=== PATIENT | male | born 1985 | race Caucasian/White ===

== ENCOUNTER 2016-11-29 12:52 | Emergency (ER) | payer OTHER ==
[~2016-11-29] VITALS: Ht 165.1 cm; Wt 58.0 kg
[2016-11-29 12:54] VITALS: TEMP 36.6; Ht 165.1 cm; Wt 58.0 kg
[2016-11-29] MEDS ORDERED: OXYCODONE HCL IR 5 MG TAB (IMMEDIATE RELEASE) PO STA (14:18)
[2016-11-29] MEDS ORDERED: LIDOCAINE/EPINEPHRINE 1% 20 ML VIAL INFIL STA (14:18)
--- NOTE | 2016-11-29 14:49 | DIAGNOSTIC IMAGING REPORT ---
LEFT KNEE 3 VIEWS CLINICAL HISTORY: Left knee trauma, laceration with grinding wheel trauma COMPARISON: None. DISCUSSION: Infrapatellar soft tissue laceration. No acute bony abnormality. A significant joint effusion. IMPRESSION: Soft tissue laceration. No acute bony abnormality. Electronically signed by: Heri Okeefe M.D. 11/29/2016 2:48 PM Dictated Date/Time: 11/29/2016 2:47 PM
[2016-11-29] MEDS ORDERED: CEPH500C PO (15:55)
--- NOTE | 2016-11-29 15:56 | EMERGENCY ROOM VISIT NOTE ---
ED Visit Note First contact with patient: 14:11 Chief Complaint: "Cut knee". History of Present Illness: This patient is a 31-year-old male who presents to the Emergency Department via private vehicle for evaluation of their left knee laceration. Patient sustained the laceration while operating a tap grinder today at approximately noon time. The patient notes that the tap grinder bounced and struck his left knee. He rates the pain as a 10/10.. They report a moderate amount of bleeding initially. They deny any numbness or tingling into the distal extremity. Patient rates his current discomfort as a 10/10. Patient's Tetanus status is currently up-to-date. 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 ROS: All pertinent positive and negative review of systems are appropriately documented in the History of Present Illness. Physical Exam: VITAL SIGNS - Vital signs and nursing notes were reviewed. GENERAL -31-year-old male appearing his stated age who is in no acute distress. Communicates well with provider and answers questions appropriately. SKIN - There are 2 linear, nearly identical lacerations on the medial aspect of the left knee. The superior most laceration measures 4 cm, with the inferior laceration measuring 4.5 The edges gape apart with traction. No foreign bodies appreciated. Upon further examination there are no deep structures including vessel, tendon, or bony structures appreciated. There is no active bleeding noted. MUSCULOSKELETAL -near full range of motion of the left knee. There is tenderness to palpation overlying the left knee joint. NEUROLOGIC - he is neurovascularly intact in the left lower extremity. VASCULAR - Capillary refill was brisk. IMAGING: LEFT KNEE 3 VIEWS CLINICAL HISTORY: Left knee trauma, laceration with grinding wheel trauma COMPARISON: None. DISCUSSION: Infrapatellar soft tissue laceration. No acute bony abnormality. A significant joint effusion. IMPRESSION: Soft tissue laceration. No acute bony abnormality. Electronically signed by: Heri Okeefe M.D. 11/29/2016 2:48 PM Dictated Date/Time: 11/29/2016 2:47 PM ED Course: Patient was seen and evaluated by myself. Risks and benefits of performing primary wound closure versus no repair were discussed with the patient who verbalizes understanding. Verbal consent was obtained prior to performing the procedure. 5 cc of 1% lidocaine with epinephrine was used to anesthetize the 2 lacerations. The wound was cleansed and prepped in the typical sterile fashion utilizing normal saline and Betadine. The wound was sterilely draped. Once proper anesthetization was established, the wound was further examined and demonstrated 2 linear lacerations without deep involvement, radiograph does not reveal any large foreign body is radiopaque. The wound was copiously irrigated with normal saline and Betadine. The wound was closed using 8 simple, 5-0 nylon sutures with the wound edges being well approximated. Patient tolerated the procedure well. No complications were met. The wound was cleansed and dressed with a Bacitracin dressing. He was fitted with a knee immobilizer as I do not want the patient flexing at the left knee causing the skin edges to tear around the suture material. He respectfully declined crutches. Patient educated on worrisome symptoms for return visit to the Emergency Department. Patient discharged to home in good condition. He will be prescribed Keflex 500 mg 3 times a day for 7 days for infectious prophylaxis secondary to the nature of the wound. In the evaluation and treatment of this patient, the following differential diagnoses were considered: Patellar Fracture, laceration, retained foreign body , Tibial Plateau Fracture, Distal Femur Fracture, ACL Injury, PCL Injury, Collateral Ligament Injury, Pes Anserine Bursitis, Maisonneuve Fracture. Current/Historical Medications Scheduled Cephalexin Monohydrate (Keflex), 500 MG PO TID Allergies Coded Allergies: Amoxicillin (Unverified Allergy, Severe, BEHAVIORAL, 11/29/16) Clavulanic Acid (Unverified Allergy, Severe, BEHAVIORAL, 11/29/16) Vital Signs Date Time Temp Pulse Resp B/P Pulse Ox O2 Delivery O2 Flow Rate FiO2 11/29/16 16:18 68 18 118/61 99 Room Air 11/29/16 16:18 68 18 118/67 99 11/29/16 12:54 36.6 58 16 135/76 98 Medications Administered Medications (Trade) Dose Ordered Sig/Rizwana Route Start Time Stop Time Status Last Admin Dose Admin Lidocaine/ Epinephrine (Xylocaine/Epine 1% Inj) 20 ml ONE STAT INFIL 11/29/16 14:18 11/29/16 14:19 DC 11/29/16 14:31 20 ML Oxycodone HCl (Roxicodone Immediate Rel Tab) 5 mg NOW STAT PO 11/29/16 14:18 11/29/16 14:19 DC 11/29/16 14:29 5 MG Departure Information Impression Primary Impression: Laceration Dispostion Home / Self-Care Condition GOOD Prescriptions Cephalexin Monohydrate (Keflex) 500 Mg Cap 500 MG PO TID for 7 Days, #21 CAP Prov: Ramesh ArellanoFELY Rosenbaum 11/29/16 Referrals Sean Allan III, M.D. (PCP) Patient Instructions My [facility] Additional Instructions You have received 8 sutures on your left knee. These sutures are NOT dissolvable and WILL need to be removed by a health care provider in 14 days. You can return to the Emergency Department or contact your Primary Care Provider to have the sutures removed. Proper wound care is essential for adequate wound healing and infection prevention. You can shower and clean the wound with soap and water. Do not scour over the wound, pat dry with a towel. Do not submerse the wound (i.e. bathe or dish wash) until the sutures have been removed. You can use an antibiotic ointment with a dressing over the wound for the next 3-4 days. After this time you may leave the wound dry and open to the air. If crust develops over the wound you can use a Q-tip to apply a 1:1 peroxide:water solution to clean the wound. Look for signs of infection of the wound including: increased pain, swelling, foul discharge, streaking, or increased temperature. If any of these are noticed you should return to the Emergency Department for further assessment and treatment. As with any laceration you may have received nerve damage to the surrounding tissues. This damage may or may not be permanent. You should keep the area covered with sunscreen for the first 6 months to 1 year when at risk for exposure to help minimize scarring. Please wear the knee brace to allow the stitches to help the skin heal. You can also use scar reducing creams or Vitamin E oil to help minimize scarring. For pain control, you can use the following [id number] medicines (if >12 yo): - Regular strength (325mg/tab) Tylenol (acetaminophen) 2 tabs every 4-6 hours as needed. Do not exceed 12 tablets in a 24 hour period. Avoid taking more than 3 grams (3000 mg) of Tylenol per day. This includes any other sources of acetaminophen you may take on a regular basis. - Regular strength (200 mg/tab) Advil (ibuprofen) 1-2 tabs every 4-6 hours as needed. Do not exceed a dose of 3200 mg per day. Return to the emergency department if your symptoms worsen despite treatment course outlined above.
[2016-11-29 16:18] VITALS: BP 118/61; PULSE 68; O2SAT 99
== END 2016-11-29 16:19 | disposition home or self-care (01) ==
LOC: C.EDB 12:54 → C.EDD 16:19
DX: S81.012A Laceration without foreign body, left knee, initial encounter (principal); W31.89XA Contact with other specified machinery, initial encounter

== ENCOUNTER 2016-12-12 10:28 | Emergency (ER) | payer OTHER ==
[~2016-12-12] VITALS: Ht 162.6 cm; Wt 57.9 kg
[2016-12-12 10:34] VITALS: BP 120/82; PULSE 99; TEMP 36.7; O2SAT 97; Ht 162.6 cm; Wt 57.9 kg
--- NOTE | 2016-12-12 10:53 | EMERGENCY ROOM VISIT NOTE ---
ED Visit Note First contact with patient: 10:45 CHIEF COMPLAINT: Suture removal left knee HISTORY of present illness: This patient returns to the ED today for removal of sutures that were placed 13 days ago into his left knee. There has been no swelling, redness, or drainage from the wound. The patient feels like the laceration is healing well. REVIEW OF SYSTEMS: 3 system review was performed and was negative unless stated otherwise in history of present illness.. PMH: The patient is healthy; there is no significant medical or surgical history. SOCIAL HISTORY: Patient lives at home. PHYSICAL EXAM: Vital Signs: Were reviewed Reviewed Nurse's notes. GENERAL: 31- year-old white male appears in no acute distress. MENTAL Status: Alert and oriented 3. LEFT KNEE: There is a sutured wound just inferior to the patella on the medial aspect. There is no erythema, swelling, or tenderness. EMERGENCY DEPARTMENT COURSE: The sutures were removed without any difficulty and there was no separation of the wound edges. DIAGNOSIS: Healing left knee laceration and suture removal DISCHARGE INSTRUCTIONS AND TREATMENT: Wash any remaining crusts off of the wound today and resume your normal activities. Current/Historical Medications No Active Prescriptions or Reported Meds Allergies Coded Allergies: Amoxicillin (Unverified Allergy, Severe, BEHAVIORAL, 12/12/16) Clavulanic Acid (Unverified Allergy, Severe, BEHAVIORAL, 12/12/16) Vital Signs Date Time Temp Pulse Resp B/P Pulse Ox O2 Delivery O2 Flow Rate FiO2 12/12/16 10:34 36.7 99 18 120/82 97 Room Air Departure Information Prescriptions No Active Prescriptions or Reported Meds Referrals No Doctor, Assigned (PCP) Patient Instructions [facility]
== END 2016-12-12 11:00 | disposition home or self-care (01) ==
LOC: C.EDB 10:30 → C.EDD 11:00
DX: S81.012D Laceration without foreign body, left knee, subsequent encounter (principal); W31.89XD Contact with other specified machinery, subsequent encounter